=== PATIENT | female | born 1960 | race African-American/Black ===

== ENCOUNTER 2017-11-21 09:01 | Emergency (ER) | payer MEDICAID, OTHER ==
[2017-11-21] MEDS ORDERED: Acetylcysteine 20% 200 MG/ML 30 ML VIAL ONE (09:15)
[2017-11-21] MEDS ORDERED: Amlodipine 5 MG TAB ONE (09:50)
[2017-11-21] MEDS ORDERED: Dexamethasone 4 MG TAB ONE (09:50)
[2017-11-21] MEDS ORDERED: Gabapentin 100 MG CAP ONE (09:50)
[2017-11-21] MEDS ORDERED: Naproxen 500 MG TAB ONE (09:50)
== END 2017-11-21 10:04 | disposition home or self-care (01) ==
LOC: MADERS 09:01
DX: M54.5 Low back pain (principal); E11.40 Type 2 diabetes mellitus with diabetic neuropathy, unspecified; E78.5 Hyperlipidemia, unspecified; I10 Essential (primary) hypertension
CPT/HCPCS: 99283; J7608; J8540

== ENCOUNTER 2018-08-02 17:50 | Emergency (ER) | payer OTHER ==
[2018-08-02] MEDS ORDERED: Ketorolac Tromethamine 60 MG/2 ML VIAL ONE (19:23)
[2018-08-02] MEDS ORDERED: Benzonatate 100 MG CAP ONE (19:43)
== END 2018-08-02 19:48 | disposition home or self-care (01) ==
LOC: MADERS 17:50
DX: B34.9 Viral infection, unspecified (principal); E11.9 Type 2 diabetes mellitus without complications; E78.5 Hyperlipidemia, unspecified; I10 Essential (primary) hypertension; Z79.899 Other long term (current) drug therapy; Z79.84 Long term (current) use of oral hypoglycemic drugs; Z79.82 Long term (current) use of aspirin
CPT/HCPCS: 87081; 87430; 87804; 96372; J1885

== ENCOUNTER 2019-04-09 15:27 | Emergency (ER) | payer OTHER ==
--- NOTE | 2019-04-09 16:20 | RAD ---
2 view chest: [04/09/2019] Comparion:None available HISTORY: Cough with chills and back pain FINDINGS: Heart and mediastinal contours are grossly unremarkable. No pneumothorax or pleural fluid. No focal consolidation or alveolar edema. IMPRESSION: No acute findings.
[2019-04-09] MEDS ORDERED: Ibuprofen 800 MG TAB ONE (16:25)
[2019-04-09] MEDS ORDERED: Acetaminophen 500 MG TAB ONE (16:25)
== END 2019-04-09 16:30 | disposition home or self-care (01) ==
LOC: MADERS 15:27
DX: J20.8 Acute bronchitis due to other specified organisms (principal); M79.10 Myalgia, unspecified site; K21.9 Gastro-esophageal reflux disease without esophagitis; E11.9 Type 2 diabetes mellitus without complications; E78.5 Hyperlipidemia, unspecified; E78.00 Pure hypercholesterolemia, unspecified; I10 Essential (primary) hypertension; Z79.899 Other long term (current) drug therapy; Z79.82 Long term (current) use of aspirin; Z79.84 Long term (current) use of oral hypoglycemic drugs
CPT/HCPCS: 71046; 87804

== ENCOUNTER 2019-06-20 13:20 | Emergency (ER) | payer OTHER ==
[2019-06-20 13:54] LABS: #Basophils 0.1 thou/uL (0.0-0.2); #Eosinphils 0.1 thou/uL (0.0-0.7); #Lymphocytes 2.3 thou/uL (1.20-3.40); #Monocytes 0.5 thou/uL (0.11-0.59); #Neutrophils 4.6 thou/uL (1.40-6.50); %Basophils 1.3 % (0.0-1.0); %Eosinophils 1.4 % (0.0-10.0); %Lymphocytes 30.7 % (21.0-51.0); %Neutrophils 60.7 % (42.0-75.0); Mean Corpuscular HGB CONC 30.2 g/dL (32.0-36.0); Mean Corpuscular Hemoglobin 25.2 pg (27.0-31.0); Mean Corpuscular Volume 83.4 fL (78.0-98.0); Mean Platelet Volume 10.3 fL (7.4-10.4); Platelet Count 310 thou/uL (130-400); RBC Distribution Width 12.3 % (11.5-14.5); Red Blood Cell (RBC) Count 5.17 mill/uL (4.20-5.40); White Blood Cell (WBC) Count 7.5 thou/uL (4.8-10.8)
[2019-06-20] MEDS ORDERED: Aspirin Chewable 81 MG TAB ONE (13:58)
[2019-06-20] MEDS ORDERED: Nitroglycerin 0.4 MG TAB 1 EACH ONE (13:58)
--- NOTE | 2019-06-20 14:02 | RAD ---
Chest AP view INDICATION: Chest pain COMPARISON: April 09, 2019 FINDINGS: Lungs:The lungs are clear Cardiac silhouette:The cardiomediastinal silhouette appears within normal limits. Pulmonary vasculature:Normal Pleural spaces:No pleural effusion or pneumothorax is demonstrated. Upper abdomen:No abnormality seen. Osseous structures: No acute osseous abnormality. Additional findings:None. IMPRESSION: No acute cardiopulmonary abnormality.
[2019-06-20 14:13] LABS: ALT (SGPT) 11 U/L (8-55); AST (SGOT) 10 U/L (5-34); Alkaline Phosphatase 100 U/L (40-110); Anion Gap 16 mmol/L (10-20); BUN (Urea Nitrogen) 9 mg/dL (9.8-20.1); Bilirubin, Total 0.5 mg/dL (0.2-1.2); Calc. Creatinine Clearance 0 mL/min (70-130); Calcium 9.6 mg/dL (7.8-10.44); Carbon Dioxide 25 mmol/L (22-29); Chloride 107 mmol/L (98-107); Estimated GFR-MDRD 86; Globulin 2.7 g/dL (2.4-3.5); Glucose 193 mg/dL (70-105); Potassium 3.7 mmol/L (3.5-5.1); Protein, Total 6.7 g/dL (6.0-8.3); Sodium 144 mmol/L (136-145)
[2019-06-20] MEDS ORDERED: Ketorolac Tromethamine 30 MG/ML VIAL ONE (14:47)
== END 2019-06-20 16:40 | disposition home or self-care (01) ==
LOC: MADERS 13:20
DX: R07.89 Other chest pain (principal); K21.9 Gastro-esophageal reflux disease without esophagitis; E11.9 Type 2 diabetes mellitus without complications; E78.5 Hyperlipidemia, unspecified; E78.00 Pure hypercholesterolemia, unspecified; I10 Essential (primary) hypertension
CPT/HCPCS: 36415; 71045; 80053; 84484; 85025; 93005; 96374; J1885

== ENCOUNTER 2020-06-12 23:48 | Emergency (ER) | payer OTHER | END 2020-06-13 00:33 | disposition home or self-care (01) | LOC: MADERS 23:48 | DX: I10 Essential (primary) hypertension (principal); E11.65 Type 2 diabetes mellitus with hyperglycemia; K21.9 Gastro-esophageal reflux disease without esophagitis; E78.5 Hyperlipidemia, unspecified; E78.00 Pure hypercholesterolemia, unspecified; Z79.82 Long term (current) use of aspirin; Z79.84 Long term (current) use of oral hypoglycemic drugs; Z79.899 Other long term (current) drug therapy | CPT/HCPCS: 36416; 99283 ==

== ENCOUNTER 2021-06-06 08:03 | Emergency (ER) | payer OTHER ==
[2021-06-06 17:20] LABS: SARS-CoV-2 PCR by NAA DETECTED (NotDetected)
== END 2021-06-06 08:46 | disposition home or self-care (01) ==
LOC: MADERS 08:03
DX: U07.1 COVID-19 (principal); I10 Essential (primary) hypertension; E78.5 Hyperlipidemia, unspecified; E78.00 Pure hypercholesterolemia, unspecified; K21.9 Gastro-esophageal reflux disease without esophagitis; E11.9 Type 2 diabetes mellitus without complications; Z79.84 Long term (current) use of oral hypoglycemic drugs; Z79.82 Long term (current) use of aspirin
CPT/HCPCS: 99283; U0003; U0005

== ENCOUNTER 2023-11-18 06:50 | Emergency (ER) | payer OTHER ==
[2023-11-18] MEDS ORDERED: Lidocaine 4% Patch ONE (07:50)
[2023-11-18] MEDS ORDERED: Ketorolac Tromethamine 30 MG (1 mL) VIAL ONE (07:50)
== END 2023-11-18 08:10 | disposition home or self-care (01) ==
LOC: MADERS 06:50
DX: M25.512 Pain in left shoulder (principal); E78.00 Pure hypercholesterolemia, unspecified; I10 Essential (primary) hypertension; Z79.82 Long term (current) use of aspirin; Z79.84 Long term (current) use of oral hypoglycemic drugs; Z79.899 Other long term (current) drug therapy
CPT/HCPCS: 96372; J1885

== ENCOUNTER 2023-12-20 07:15 | Emergency (ER) | payer OTHER ==
[2023-12-20] MEDS ORDERED: Tetracaine 0.5% PF 4 ML BOT ONE (08:33)
[2023-12-20] MEDS ORDERED: Fluorescein Opthalmic Strip ONE (08:33)
== END 2023-12-20 08:54 | disposition home or self-care (01) ==
LOC: MADERS 07:15
DX: H10.11 Acute atopic conjunctivitis, right eye (principal); B35.9 Dermatophytosis, unspecified; E11.9 Type 2 diabetes mellitus without complications; I10 Essential (primary) hypertension; E78.00 Pure hypercholesterolemia, unspecified; Z79.899 Other long term (current) drug therapy; Z79.84 Long term (current) use of oral hypoglycemic drugs; Z79.82 Long term (current) use of aspirin
CPT/HCPCS: 65222

== ENCOUNTER 2023-12-24 20:22 | Emergency (ER) | payer OTHER | END 2023-12-24 22:20 | disposition home or self-care (01) | LOC: MADERS 20:22 | DX: B35.4 Tinea corporis (principal); E11.9 Type 2 diabetes mellitus without complications; I10 Essential (primary) hypertension; E78.00 Pure hypercholesterolemia, unspecified; Z79.82 Long term (current) use of aspirin; Z79.84 Long term (current) use of oral hypoglycemic drugs; Z79.899 Other long term (current) drug therapy | CPT/HCPCS: 99282 ==

== ENCOUNTER 2024-03-09 11:52 | Emergency (ER) | payer OTHER ==
[2024-03-09] MEDS ORDERED: Acetaminophen 325 MG TAB ONE (12:23)
[2024-03-09] MEDS ORDERED: Ibuprofen 800 MG TAB ONE (12:23)
[2024-03-09] MEDS ORDERED: Lidocaine 4% Patch ONE (12:23)
== END 2024-03-09 13:00 | disposition home or self-care (01) ==
LOC: MADERS 11:52
DX: S43.402A Unspecified sprain of left shoulder joint, initial encounter (principal); E11.9 Type 2 diabetes mellitus without complications; I10 Essential (primary) hypertension; E78.00 Pure hypercholesterolemia, unspecified; Z79.82 Long term (current) use of aspirin; Z79.899 Other long term (current) drug therapy; X50.0XXA Overexertion from strenuous movement or load, initial encounter
CPT/HCPCS: 99283

== ENCOUNTER 2024-07-06 18:23 | Emergency (ER) | payer OTHER ==
[2024-07-06 19:52] LABS: Bilirubin Negative (Negative); Blood, Urine Negative (Negative); Clarity Clear (Clear); Glucose, Urine (Dipstick) 500 mg/dL (Negative); Ketone, Urine Negative (Negative); Leukocyte Negative (Negative); Nitrite Negative (Negative); Protein, Urine (Dipstick) Negative (Neg-Trace); pH, Urine 5.5 (5.0-9.0)
[2024-07-06 19:54] LABS: CAUTI Indications for Culture Acute Hematuria; RBC/HPF None Seen HPF (0-3); WBC/HPF None Seen HPF (0-3)
[2024-07-06 19:57] LABS: Urine Culture Reflex No No
[2024-07-06 20:51] LABS: Hematocrit 37.1 % (36.0-47.0); Hemoglobin 11.7 g/dL (12.0-16.0); Mean Corpuscular HGB CONC 31.6 g/dL (32.0-36.0); Mean Corpuscular Hemoglobin 26.2 pg (27.0-31.0); Mean Corpuscular Volume 82.7 fl (78.0-98.0); Mean Platelet Volume 10.9 fL (7.4-10.4); Platelet Count 283 10x3/uL (130-400); RBC Distribution Width 12.1 % (11.5-14.5); Red Blood Cell (RBC) Count 4.49 mill/uL (4.20-5.40); White Blood Cell (WBC) Count 13.2 10x3/uL (4.8-10.8)
[2024-07-06 20:53] LABS: Eosinophils 2 % (0-10); Lymphocytes 21 % (21-51); MDiff Complete? YES; Monocytes 6 % (0-10); Neutrophil 71 % (42-75)
[2024-07-06 21:03] LABS: Base Excess-Venous 6.8 mmol/L (-2.0 to 3.0); Bicarbonate (HCO3v) 31.6 mmol/L (22.0-28.0); CO2 Tension (PvCO2) 44.8 mmHg (42.0-51.0); Calcium, Ionized 1.21 mmol/L (1.15-1.33); Chloride 98 mmol/L (98-107); Potassium 3.9 mmol/L (3.5-5.1); Sodium 136 mmol/L (138-145); vO2 Saturation-calc 87.8 % (60.0-85.0)
[2024-07-06 21:14] LABS: ALT (SGPT) 10 U/L (Less than 34); AST (SGOT) 12 U/L (11-34); Albumin 3.2 g/dL (3.1-4.5); Alkaline Phosphatase 88 U/L (40-110); Anion Gap 17 mmol/L (10-20); BUN (Urea Nitrogen) 21 mg/dL (9.8-20.1); Bilirubin, Total 0.8 mg/dL (0.3-1.2); Calc. Creatinine Clearance 0 mL/min (70-130); Calcium 9.2 mg/dL (7.8-10.44); Carbon Dioxide 24 mmol/L (23-31); Chloride 99 mmol/L (98-107); Estimated GFR 51; Globulin 3.1 g/dL (2.4-3.5); Lipase 48 U/L (8-78); Magnesium 2.3 mg/dL (1.6-2.6); Potassium 3.9 mmol/L (3.5-5.1); Protein, Total 6.3 g/dL (5.8-8.1); Sodium 136 mmol/L (136-145)
[2024-07-06 21:17] LABS: Critical Call Chemistry ERS.JD @ 2115; Glucose 443 mg/dL (80-115)
== END 2024-07-06 22:27 | disposition home or self-care (01) ==
LOC: MADERS 18:23
DX: J20.9 Acute bronchitis, unspecified (principal); K64.4 Residual hemorrhoidal skin tags; E10.65 Type 1 diabetes mellitus with hyperglycemia; I10 Essential (primary) hypertension; E78.00 Pure hypercholesterolemia, unspecified
CPT/HCPCS: 36416; 80053; 81001; 82010; 82330; 82435; 82803; 83690; 83735; 84132; 84295; 85014; 85025; 87428; 96360